=== PATIENT | female | born 1980 ===

== ENCOUNTER 2017-06-01 15:30 | Emergency (ER) | payer BC ==
[2017-06-01 15:34] VITALS: BMI 23.6
[2017-06-01 15:38] VITALS: O2SAT 100
--- NOTE | 2017-06-01 16:16 | C.PDOC ---
History Of Present Illness <Deloris Montalvo - Last Filed: 06/01/17 19:16> <García Varma - Last Filed: 06/01/17 19:34> Patient is a 36 year old female with no past medical history, who presents to the ED with pelvic pain. The patient is 17 weeks , , with no previous complications. She states she was at work and started to have a cramping, pressure-like pain in her lower abdomen,pelvis, more severe on the right. She also notes the pain starting to radiate to her back while in the ED. Patient states the pain is worse with walking and more tolerable at rest. She has never felt this pain previously or in her previous . She denies trauma or heavy lifting. She tried taking Tylenol, but had no relief. Patient states she is feeling anxious and worried about her symptoms. Patient denies chest pain, palpitations, nausea, vomiting, shortness of breath, fevers, diarrhea, constipation, headaches, and leg pain. PMHx: denies SurgHx: 2013 FamHx: denies SocHx: denies tobacco, alcohol, and drug use; lives with friends and her 4 year old son in [place]. Allergies: NKDA Medication: vitamins (Deloris Montalvo) History Per: Patient History/Exam Limitations: no limitations Onset/Duration Of Symptoms: Hrs Current Symptoms Are (Timing): Worse Severity: Moderate Location Of Pain/Discomfort: RLQ, Suprapubic Radiation Of Pain To:: Back Quality Of Discomfort: Cramping, Pressure Associated Symptoms: Back Pain. denies: Fever, Chills, Nausea, Vomiting, Diarrhea, Chest Pain, Constipation, Urinary Symptoms Exacerbating Factors: Walking Alleviating Factors: Rest Last Bowel Movement: Today Additional History Per: Patient Abnormal Vaginal Bleeding: No Last Menstral Period: 02/07/17 : 2 Para: 1 Miscarriage: 0 <Deloris Montalvo - Last Filed: 06/01/17 19:16> <García Varma - Last Filed: 06/01/17 19:34> Time Seen by Provider: 06/01/17 15:43 Chief Complaint (Nursing): Abdominal Pain Past Medical History - Medical History PMH: No Chronic Diseases Surgical History: (2013) Family History: States: No Known Family Hx - Social History Hx Tobacco Use: No Hx Alcohol Use: No Hx Substance Use: No <Deloris Montalvo - Last Filed: 06/01/17 19:16> Vital Signs: Last Vital Signs Temp 98.2 F 06/01/17 19:15 Pulse 100 H 06/01/17 19:15 Resp 18 06/01/17 19:15 BP 118/83 06/01/17 19:15 Pulse Ox 100 06/01/17 19:17 Review Of Systems Except As Marked, All Systems Reviewed And Found Negative. Constitutional: Negative for: Fever, Chills, Weakness Cardiovascular: Negative for: Chest Pain, Palpitations, Edema, Light Headedness Respiratory: Negative for: Cough, Shortness of Breath Gastrointestinal: Positive for: Abdominal Pain (suprapubic pain). Negative for : Nausea, Vomiting, Diarrhea, Constipation, Melena Genitourinary: Positive for: Pelvic Pain. Negative for: Dysuria, Frequency, Hematuria, Vaginal Discharge, Vaginal Bleeding Musculoskeletal: Positive for: Back Pain Neurological: Negative for: Dizziness Psych: Positive for: Anxiety <Deloris Montalvo - Last Filed: 06/01/17 19:16> Physical Exam - Physical Exam Appears: Well, No Acute Distress Skin: Normal Color, Warm, Dry, No Rash Head: Atraumatic, Normacephalic Eye(s): bilateral: Normal Inspection, EOMI Neck: Normal ROM Lymphatic: No Inguinal Node Tenderness Cardiovascular: Rhythm Regular, No Edema, No Murmur Respiratory: Normal Breath Sounds, No Rales, No Rhonchi, No Wheezing Gastrointestinal/Abdominal: Normal Exam, Bowel Sounds, Soft, Tenderness (RUQ and left suprapubic pain with palpation, radiates to back), No Guarding, No Rebound Back: No CVA Tenderness Extremity: Normal ROM, No Tenderness, No Pedal Edema Extremity: Bilateral: No Pedal Edema Pulses: Left Dorsalis Pedis: Normal, Right Dorsalis Pedis: Normal Neurological/Psych: Oriented x3, Normal Speech <Deloris Montalvo - Last Filed: 06/01/17 19:16> ED Course And Treatment - Laboratory Results Result Diagrams: 06/01/17 16:14 06/01/17 16:14 O2 Sat by Pulse Oximetry: 100 <Deloris Montalvo - Last Filed: 06/01/17 19:16> - Laboratory Results Result Diagrams: 06/01/17 16:14 06/01/17 16:14 - Other Rad US X-Ray: Read By Radiologist (normal 17 wk preg) <García Varma - Last Filed: 06/01/17 19:34> Medical Decision Making <Deloris Montalvo - Last Filed: 06/01/17 19:16> <García Varma - Last Filed: 06/01/17 19:34> Medical Decision Making: Ordered: - Labs - UA - Pelvic ultrasound - Tylenol given--> patient complaining of increasing, more severe pain. Morphine 3m IV ordered, however patient declined at the time. General surgery consulted, Dr. Mendoza, to r/o appendicitis. UA: 1+ LE, 5 WBC, Occ bacteria; started Macrobid 100mg BID PO for 5 days ( Deloris Montalvo) 0: d/w Dr. Katie Villareal, Medicine [facility]- ok to admit d/w Surgical consult- Dr. Mendoza- will consult and order abd MRI emergently to eval for AP 0: pt d/w Surgery and prefers to be d/c AMA, trial a laxative overnight and take Augmentin PO abx and return in AM PRN. (García Varma) Disposition <Deloris Montalvo - Last Filed: 06/01/17 19:16> Doctor Will See Patient In The: Hospital Counseled Patient/Family Regarding: Studies Performed, Diagnosis - Disposition Disposition Time: 19:09 <García Varma - Last Filed: 06/01/17 19:34> - Disposition Disposition: HOSPITALIZED Condition: GOOD - Clinical Impression Clinical Impression: Abdominal pain,
[2017-06-01 16:23] LABS: BASO % 0.2 % (0.0-2.0); EOS # 0.4 K/uL (0.0-0.7); EOS % 2.6 % (0.0-4.0); HEMOGLOBIN 12.9 g/dL (11.0-16.0); LYMPH # 2.3 K/uL (1.0-4.3); LYMPH % 16.3 % (20.0-40.0); MEAN CELL VOLUME 82.6 fL (81.0-99.0); MEAN CORPUSCULAR HGB CONC 33.9 g/dL (33.0-37.0); MEAN PLATELET VOLUME 8.3 fL (7.2-11.7); MONO # 0.8 K/uL (0.0-0.8); MONO % 5.6 % (0.0-10.0); NEUT # 10.6 K/uL (1.8-7.0); NEUT % 75.3 % (50.0-75.0); RBC 4.6 Mil/uL (3.80-5.20); RED CELL DISTRIBUTION WIDTH 13.6 % (11.5-14.5)
[2017-06-01 16:37] LABS: SQUAMOUS EPITHIAL 1 /hpf (0-5); URINE AMORPHOUS SEDIMENT FEW /ul (<OCC); URINE BACTERIA OCC (<OCC); URINE BILIRUBIN NEGATIVE (NEGATIVE); URINE BLOOD NEGATIVE (NEGATIVE); URINE CLARITY Hazy (Clear); URINE COLOR Yellow (YELLOW); URINE GLUCOSE (UA) NORMAL (Normal); URINE LEUKOCYTE ESTERASE 1+ Leu/uL (Negative); URINE NITRATE NEGATIVE (NEGATIVE); URINE PROTEIN NEGATIVE (NEGATIVE); URINE UROBILINOGEN NORMAL mg/dL (0.2-1.0)
[2017-06-01 16:43] LABS: ALT/SGPT 27 U/L (9-52); AST/SGOT 18 U/L (14-36); BLOOD UREA NITROGEN 7 mg/dL (7-17); CALCIUM 9.3 mg/dl (8.6-10.4); GFR AFRICAN-AMERICAN > 60; GFR NON-AFRICAN AMERICAN > 60
[2017-06-01] MEDS ORDERED: Morphine 4 MG/ML VIAL IV ONE (17:27)
[2017-06-01] MEDS ORDERED: Morphine 4 MG/ML VIAL ONE (18:34)
--- NOTE | 2017-06-01 18:43 | US ---
PROCEDURE: Obstetrical ultrasound examination HISTORY: lower abdominal,pelvic pain; 17 weeks COMPARISON: Not available TECHNIQUE: Transabdominal FINDINGS: There is a single live intrauterine gestation in cephalic presentation. The heart rate is 158 beats per minute. A grossly normal quantity of amniotic fluid is visualized. A posterior placenta is identified. There is no evidence of placenta previa. The cervix measures 3.2 cm in length. biometry yields a gestational age of 16 weeks 4 days. The BETTY by ultrasound is 11/12/2017. Limited review of anatomy demonstrates fluid distending the stomach and urinary bladder. There is no evidence of hydronephrosis. Four extremities are demonstrated. A three-vessel umbilical cord is identified. The anterior abdominal wall is intact. Both ovaries are visualized. The right ovary measures 3.8 x 2.9 x 3.5 cm on the left ovary measures 2.1 x 1.9 x 1.8 cm. Normal blood flow is demonstrated in both ovaries. IMPRESSION: Single live intrauterine gestation of approximately 16 weeks 4 days gestational age. No gross anatomic abnormality. Full anatomic evaluation has not been performed. Cephalic presentation. Cervix closed. Posterior placenta. No previa.
[2017-06-01 19:29] VITALS: BP 118/83; PULSE 100; RESP 18; TEMP 98.2
[2017-06-01] MEDS ORDERED: Amoxicillin-Clav 875-125 mg Tab PO STA (19:36)
[2017-06-01] MEDS ORDERED: Amoxicillin-Clav 875-125 mg Tab PO ONE (19:45)
--- NOTE | 2017-06-01 19:50 | CP.PCM.CON ---
History of Present Illness - History of Present Illness History of Present Illness: Surgery Consult note. Dr. Mendoza 36yo F with no significant PMHx here for evaluation of RLQ abd pain. Patient states that she is 17 weeks . Patient states that she started to have RLQ abdominal pain which began just prior to arrival around 1PM today. She reports the pain described as crampy and sharp in nature, severe. Pain radiates to Right lower back. She took 500mg Tylenol just prior to arrival with minimal relief. She received 650mg Tylenol in the ED with some relief of abdominal pain. Denies ever having similar pain before this. Denies any nausea or vomiting. No diarrhea. Last meal was 10AM this morning. Denies any changes in bowel pattern. Denies any urinary changes. No CP/SOB. No headaches. Does state that she is hungry currently. PMHx: Denies PSHx: x1 in 2013 Family Hx: Denies Social Hx: Denies Tobacco use. Denies ETOH use. Denies illicit drug use. In the process of moving to [place], [place]. NKDA Review of Systems - Review of Systems All systems: reviewed and no additional remarkable complaints except - Constitutional Constitutional: absent: Anorexia, Chills, Fever - Cardiovascular Cardiovascular: absent: Chest Pain, Diaphoresis, Dyspnea - Respiratory Respiratory: absent: Dyspnea - Gastrointestinal Gastrointestinal: Abdominal Pain. absent: Constipation, Diarrhea, Nausea, Vomiting - Genitourinary Genitourinary: absent: Dysuria - Musculoskeletal Musculoskeletal: Back Pain (right lower). absent: Radiating Pain into Limb - Neurological Neurological: absent: Focal Weakness, Headaches Past Patient History - Past Social History Smoking Status: Never Smoked - PSYCHIATRIC Hx Substance Use: No - SURGICAL HISTORY Hx Surgeries: Yes Hx Section: Yes (x1) - ANESTHESIA Hx Anesthesia: Yes Hx Anesthesia Reactions: No Meds Home Medications: Home Medication List Medication Instructions Recorded Confirmed Type Amoxicillin/Clavulanate [Augmentin 1 tab PO BID #9 tab 06/01/17 Rx 875 MG-125 MG] Magnesium Citrate [[facility] 300 ml PO ONCE PRN #1 bottle 06/01/17 Rx Pharmacy Magnesium Citrate] Allergies/Adverse Reactions: Allergies Allergy/AdvReac Type Severity Reaction Status Date / Time No Known Allergies Allergy Verified 06/01/17 15:32 - Medications Medications: Current Medications Nitrofurantoin Macrocrystals (Macrobid) 100 mg PO Q12H PONCHO Stop: 06/06/17 17:01 Last Admin: 06/01/17 18:40 Dose: 100 mg Physical Exam - Constitutional Appears: Well, Non-toxic, No Acute Distress - Head Exam Head Exam: ATRAUMATIC, NORMAL INSPECTION, NORMOCEPHALIC - Eye Exam Eye Exam: EOMI, Normal appearance - ENT Exam ENT Exam: Mucous Membranes Moist - Respiratory Exam Respiratory Exam: NORMAL BREATHING PATTERN. absent: Clear to Auscultation Bilateral, Respiratory Distress - Cardiovascular Exam Cardiovascular Exam: absent: JVD - GI/Abdominal Exam GI & Abdominal Exam: Soft. absent: Distended, Firm, Guarding, Rebound, Rigid Additional comments: Tenderness to palpation RLQ. No rebound, no guarding. No Moreira's. Uterus non-palpable transabdominally. - Extremities Exam Extremities exam: Positive for: normal inspection. Negative for: calf tenderness - Back Exam Back exam: NORMAL INSPECTION. absent: CVA tenderness (L), CVA tenderness (R) - Neurological Exam Neurological exam: Alert, Oriented x3 - Psychiatric Exam Psychiatric exam: Normal Affect, Normal Mood - Skin Skin Exam: Dry, Intact, Normal Color, Warm Results - Vital Signs Recent Vital Signs: Last Vital Signs Temp 98.2 F 06/01/17 19:15 Pulse 100 H 06/01/17 19:15 Resp 18 06/01/17 19:15 BP 118/83 06/01/17 19:15 Pulse Ox 100 06/01/17 19:17 - Labs Result Diagrams: 06/01/17 16:14 06/01/17 16:14 Labs: Laboratory Results - last 24 hr 06/01/17 06/01/17 06/01/17 16:14 16:14 16:27 WBC 14.0 H RBC 4.60 Hgb 12.9 Hct 38.0 MCV 82.6 MCH 28.0 MCHC 33.9 RDW 13.6 Plt Count 320 MPV 8.3 Neut % (Auto) 75.3 H Lymph % (Auto) 16.3 L Day % (Auto) 5.6 Eos % (Auto) 2.6 Baso % (Auto) 0.2 Neut # (Auto) 10.6 H Lymph # (Auto) 2.3 Day # (Auto) 0.8 Eos # (Auto) 0.4 Baso # (Auto) 0.0 Sodium 135 Potassium 3.6 Chloride 97 L Carbon Dioxide 23 Anion Gap 19 BUN 7 Creatinine 0.4 L Est GFR ( Amer) > 60 Est GFR (Non-Af Amer) > 60 Random Glucose 93 Calcium 9.3 Total Bilirubin 0.4 AST 18 ALT 27 Alkaline Phosphatase 108 Total Protein 8.0 Albumin 4.0 Globulin 3.9 Albumin/Globulin Ratio 1.0 Urine Color Yellow Urine Clarity Hazy Urine pH 7.0 Ur Specific [place] 1.015 Urine Protein Negative Urine Glucose (UA) Normal Urine Ketones Negative Urine Blood Negative Urine Nitrate Negative Urine Bilirubin Negative Urine Urobilinogen Normal Ur Leukocyte Esterase 1+ H Urine WBC (Auto) 5 Urine RBC (Auto) 2 Ur Squamous Epith Cells 1 Amorphous Sediment Few H Urine Bacteria Occ H Assessment & Plan - Assessment and Plan (Free Text) Assessment: 36yo F, 17wks here with RLQ abdominal pain. R/o Appy - Unable to perform CT due current . Plan: - Recommended Abdominal MRI to r/o acute appy - Patient offered admission for observation in the hospital, however, she is electing to leave Against medical advice - Patient agrees to take oral antibiotics and trial laxatives - She was urged to return to the ER with any concerning symptoms - Detailed discussion held with patient and friends at bedside about the risks of leaving AMA and the benefits of staying to obtain definitive treatment. Patient urged to not travel while she is symptomatic - Patient elects to leave AMA. Discussed in detail with ER attending, Dr. Varma. Discussed patient with Dr. Reji Montero PGY1 surgery pager: [phone]
== END 2017-06-01 19:58 | disposition left against medical advice (07) ==
LOC: C.ER 15:30 → C.9E 19:11 → UNDOADMOB 19:11 → C.ER 19:58
DX: O26.92 Pregnancy related conditions, unspecified, second trimester (principal); R10.9 Unspecified abdominal pain; Z3A.17 17 weeks gestation of pregnancy